=== PATIENT | female | born 1945 | race Two or more races ===

== ENCOUNTER 2024-07-11 08:27 | Inpatient (IN) | payer OTHER ==
[~2024-07-11] VITALS: Ht 160 cm; Wt 60.3 kg
[2024-07-11] MEDS ORDERED: AVALIDE 300-121 EACH PO (09:35)
[2024-07-11] MEDS ORDERED: FARXIGA10 MG PO (09:36)
[2024-07-11] MEDS ORDERED: TRULICITY1.5 MG/0.5 (09:36)
[2024-07-11] MEDS ORDERED: SYNTHROID112 MCG PO (09:36)
[2024-07-11 09:39] VITALS: BP 170/82
[2024-07-17 09:21] LABS: RH POSITIVE
[2024-07-17] MEDS ORDERED: ROSUVASTATIN CA40 MG (11:26)
[2024-07-17] MEDS ORDERED: CLOTRIMAZOLE-BE15 G1 (11:26)
[2024-07-17] MEDS ORDERED: TRULICITY3 MG/0.5 M (11:26)
[2024-07-17] MEDS ORDERED: CITALOPRAM HBR10 MG (11:26)
[2024-07-17] MEDS ORDERED: IRBESARTAN-HCT1 EACH (11:29)
[2024-07-17] MEDS ORDERED: VANCOMYCIN HCL 1,000 MG VIAL IV ONE (15:45)
[2024-07-17] MEDS ORDERED: POLYMYXIN B SULFATE 500,000 U VIAL IR ONE (15:45)
[2024-07-17] MEDS ORDERED: MORPHINE SULFATE 4 MG/ML VIAL IV ONE (15:45)
[2024-07-17] MEDS ORDERED: TRANEXAMIC ACID 100MG/1ML (1000MG) AMPUL IV ONE ×2 (15:45)
[2024-07-17] MEDS ORDERED: MORPHINE SULFATE 4 MG/ML CARTRIDGE IV PRN (16:45)
[2024-07-17] MEDS ORDERED: SODIUM CHLORIDE 0.45 % 1,000 ML IV SCH (16:45)
[2024-07-17] MEDS ORDERED: ONDANSETRON HCL 2 MG/ML VIAL IV PRN (16:45)
[2024-07-17] MEDS ORDERED: MORPHINE SULFATE 2 MG/ML CARTRIDGE IV ONE (16:45)
[2024-07-17 20:21] LABS: HEMATOCRIT 45.6 % (36.0-45.00); HEMOGLOBIN 15.1 g/dL (12.0-15.00); RED BLOOD COUNT 4.93 M/uL (4.00-6.00)
[2024-07-17] MEDS ORDERED: VANCOMYCIN HCL 1,000 MG VIAL IV SCH (21:00)
[2024-07-17 22:29] VITALS: BP 134/63; O2SAT 99
[2024-07-18] VITALS: BP 158/70; O2SAT 96
[2024-07-18] MEDS ORDERED: LEVOTHYROXINE SODIUM 112 MCG TABLET PO SCH (06:00)
[2024-07-18 06:12] LABS: HEMATOCRIT 43.3 % (36.0-45.00); HEMOGLOBIN 14.6 g/dL (12.0-15.00); MEAN CELL VOLUME 92.3 fL (80.00-100.00); MEAN CORPUSCULAR HEMOGLOBIN 31.1 pg (27.00-32.0); MEAN CORPUSCULAR HGB CONC 33.7 g/dl (32.0-36.0); PLATELET COUNT 136 K/uL (150-450); RED BLOOD COUNT 4.69 M/uL (4.00-6.00); RED CELL DISTRIBUTION WIDTH 15.1 % (11.5-14.5)
[2024-07-18 07:45] VITALS: BP 149/72; O2SAT 96
[2024-07-18] MEDS ORDERED: ACETAMINOPHEN WITH CODEINE 1 UDTAB TABLET PO PRN (07:45)
[2024-07-18] MEDS ORDERED: HYDROCHLOROTHIAZIDE 12.5 MG CAPSULE PO SCH (09:00)
[2024-07-18] MEDS ORDERED: IRON FUM,PS/FOLIC/BCOMP,C NO.9 1 CAP CAPSULE PO SCH (09:00)
[2024-07-18] MEDS ORDERED: IRBESARTAN 300 MG TABLET PO SCH (09:00)
[2024-07-18] MEDS ORDERED: RIVAROXABAN 10 MG TAB PO SCH (09:00)
[2024-07-18] MEDS ORDERED: BACITRACIN 28.35 GM OINT.TUBE TOP SCH (09:00)
[2024-07-18 12:09] LABS: ALBUMIN 3.4 gm/dL (3.4-5.0); BILIRUBIN TOTAL 1.45 mg/dL (0.3-1.2); CREATININE SERUM 0.74 mg/dL (0.55-1.02); GFR 75.32; GLOBULINA 3.5 G/DL (2.4-3.5); POTASSIUM 4.44 mEq/L (3.5-5.1); TOTAL PROTEIN 6.9 gm/dL (6.4-8.2)
[2024-07-18 15:42] VITALS: BP 97/65; O2SAT 95
[2024-07-19 00:53] VITALS: BP 101/65; O2SAT 96
[2024-07-19 06:13] LABS: HEMATOCRIT 39.6 % (36.0-45.00); HEMOGLOBIN 13.3 g/dL (12.0-15.00); MEAN CELL VOLUME 92.9 fL (80.00-100.00); MEAN CORPUSCULAR HEMOGLOBIN 31.2 pg (27.00-32.0); MEAN CORPUSCULAR HGB CONC 33.6 g/dl (32.0-36.0); RED BLOOD COUNT 4.26 M/uL (4.00-6.00); RED CELL DISTRIBUTION WIDTH 14.9 % (11.5-14.5)
[2024-07-19] MEDS ORDERED: XARELTO10 MG PO (06:23)
[2024-07-19] MEDS ORDERED: INTEGRA PLUS C1 EACH PO (06:23)
[2024-07-19] MEDS ORDERED: Septra Ds Tablet PO (06:23)
[2024-07-19] MEDS ORDERED: ACETAMINOPHEN-1 EAC2 PO (06:23)
[2024-07-19 06:25] LABS: PLATELET COUNT 125 K/uL (150-450)
[2024-07-19 08:19] VITALS: BP 117/71; O2SAT 95
[2024-07-19] MEDS ORDERED: SULFAMETHOXAZOLE/TRIMETHOPRIM DS 1 TAB PO SCH (09:00)
== END 2024-07-19 16:22 | DRG 470 ==
LOC: O/R 07-17 05:45 → SURG 07-17 08:45
PROVIDERS: ADMIT Orthopaedic Surgery Sports Medicine; ATTEND Orthopaedic Surgery Sports Medicine
PROC: 0SRD0J9 Replacement of Left Knee Joint with Synthetic Substitute, Cemented, Open Approach (ICD-10-PCS; principal; 2024-07-17 18:45)
DX: M17.12 Unilateral primary osteoarthritis, left knee (principal); I10 Essential (primary) hypertension; E78.5 Hyperlipidemia, unspecified; E03.9 Hypothyroidism, unspecified